=== PATIENT | male | born 1940 | race Caucasian/White ===

== ENCOUNTER 2021-06-06 12:22 | Emergency (ER) | payer MEDICARE, OTHER ==
[~2021-06-06 12:22] MED LIST: ASPIR-LOW81 MG PO; B-12 PO; CALCIUM PO; CLONIDINE HCL0.2 MG PO; METOPROLOL TART50 MG PO; MULTIVITAMIN PO; NORVASC5 MG PO; PANTOPRAZOLE SO40 MG PO; PRAVASTATIN SOD80 MG PO; SINGULAR PO; ULTRAM 50MG50 MG PO
[2021-06-06 13:24] LABS: ALBUMIN 3.7 g/dL (3.5-5.0); ANION GAP 12.2 mmol/L (8-16); CALCIUM 9.3 mg/dL (8.4-10.2); CREATININE, SERUM 0.77 mg/dL (0.72-1.25); POTASSIUM 3.2 mmol/L (3.5-5.1)
[2021-06-06 13:28] LABS: BASOPHILS % 0.4 % (0.0-1.0); EOSINOPHILS % 0.4 % (0.0-6.0); HEMOGLOBIN 13.8 g/dL (14.0-18.0); LYMPHOCYTES # (AUTO) 0.2 (1.0-3.2); LYMPHOCYTES % 4.3 % (18.0-39.1); MEAN CORPUSCULAR HGB CONC 34.5 g/dL (31-35); MEAN CORPUSCULAR VOLUME 98.5 fL (81-99); MONOCYTES # (AUTO) 0.3 (0.2-0.8); MONOCYTES % 5.5 % (4.4-11.3); NEUTROPHILS # (AUTO) 4.7 (2.1-6.9); NEUTROPHILS % 88.8 % (38.7-80.0); PLATELET COUNT 142 x10e3/uL (140-360); RED BLOOD COUNT 4.06 x10e6/uL (4.3-5.7); RED CELL DISTRIBUTION WIDTH 12.1 % (11.7-14.4)
[2021-06-06 13:52] LABS: CLARITY,URINE CLEAR (CLEAR); COLOR,URINE YELLOW (YELLOW)
[2021-06-06 13:53] LABS: BACTERIA,URINE RARE /HPF; KETONES,URINE NEGATIVE (NEGATIVE); LEUKOCYTE ESTERASE ,URINE NEGATIVE (NEGATIVE); NITRITE,URINE NEGATIVE (NEGATIVE); PROTEIN,URINE DIPSTICK 1+ (NEGATIVE); RBC,URINE 0-5 /HPF (0-5); URINE UROBILINOGEN 0.2 mg/dL (0.2 - 1)
[2021-06-06 14:54] VITALS: BP 140/83
[2021-06-06] MEDS ORDERED: CEFUROXIME250 MG PO (15:21)
== END 2021-06-06 15:34 | disposition home or self-care (01) ==
LOC: ER 12:34
DX: R53.81 Other malaise (principal); R73.9 Hyperglycemia, unspecified; R53.83 Other fatigue; I10 Essential (primary) hypertension; E78.5 Hyperlipidemia, unspecified; Z20.822 Contact with and (suspected) exposure to COVID-19
CPT/HCPCS: 36415; 80053; 81001; 85025; 87086; 99283; U0002

== ENCOUNTER 2021-07-13 10:23 | Inpatient (IN) | payer MEDICARE ==
[2021-07-10 13:57] LABS: BASOPHILS % 0.4 % (0.0-1.0); EOSINOPHILS # (AUTO) 0.3 (0.0-0.4); EOSINOPHILS % 5.5 % (0.0-6.0); HEMATOCRIT 38.2 % (38.2-49.6); HEMOGLOBIN 12.7 g/dL (14.0-18.0); LYMPHOCYTES % 19.7 % (18.0-39.1); MEAN CORPUSCULAR HEMOGLOBIN 33.5 pg (28-32); MEAN CORPUSCULAR HGB CONC 33.2 g/dL (31-35); MEAN CORPUSCULAR VOLUME 100.8 fL (81-99); MONOCYTES # (AUTO) 0.7 (0.2-0.8); MONOCYTES % 13.4 % (4.4-11.3); NEUTROPHILS % 60.8 % (38.7-80.0); PLATELET COUNT 168 x10e3/uL (140-360); RED BLOOD COUNT 3.79 x10e6/uL (4.3-5.7); RED CELL DISTRIBUTION WIDTH 12.4 % (11.7-14.4)
[2021-07-10 14:24] LABS: ANION GAP 14.3 mmol/L (8-16); CALCIUM 9.5 mg/dL (8.4-10.2); CREATININE, SERUM 0.79 mg/dL (0.72-1.25); POTASSIUM 4.3 mmol/L (3.5-5.1)
[~2021-07-13] VITALS: Ht 170.2 cm; Wt 97.5 kg
[~2021-07-13 10:23] MED LIST changes: +CEFUROXIME250 MG PO
[2021-07-13] MEDS ORDERED: SODIUM CHLORIDE 0.9% 50ML 50 ML ONE (11:13)
[2021-07-13] MEDS ORDERED: PIPERACILLIN/TAZOBACTAM 3.375 GM VIAL ONE (11:14)
[2021-07-13] MEDS ORDERED: SODIUM CHLORIDE 0.9% 1000ML 1,000 ML ONE (11:14)
[2021-07-13] MEDS ORDERED: GENTAMICIN 80MG/NS 100 ML 200 ML IV ONE (12:00)
[2021-07-13] MEDS ORDERED: B&O 60MG R/S 60 MG SUPP PR ONE (12:51)
[2021-07-13] MEDS ORDERED: IOPAMIDOL 300MG/ML 50ML INFUS..BTL IV ONE (12:51)
[2021-07-13] MEDS ORDERED: ONDANSETRON HCL INJ 2MG/ML 2ML 2 MG/ML VIAL IV PRN (13:00)
[2021-07-13] MEDS ORDERED: B&O 60MG R/S 60 MG SUPP PR PRN (13:00)
[2021-07-13] MEDS ORDERED: DIPHENHYDRAMINE HCL 25 MG CAP PO PRN (13:00)
[2021-07-13] MEDS ORDERED: PHENAZOPYRIDINE HCL 100 MG TAB PO PRN (13:00)
[2021-07-13] MEDS ORDERED: LIDOCAINE HCL 2% LOCAL INJ 5 ML SDV VIAL INJ ONE (13:39)
[2021-07-13] MEDS ORDERED: POVIDONE IODINE 0.05% 0.05 % ML PO ONE (13:39)
[2021-07-13] MEDS ORDERED: SEVOFLURANE INHAL SOLN 250 ML PEN BTL ONE (13:39)
[2021-07-13] MEDS ORDERED: PROPOFOL IV EMULSION 10 MG/ML 20 ML VIAL ONE (13:39)
[2021-07-13] MEDS ORDERED: ONDANSETRON HCL INJ 2MG/ML 2ML 2 MG/ML VIAL ONE (13:39)
[2021-07-13] MEDS ORDERED: FENTANYL CITRATE/PF 100MCG/2 ML INJ ONE (13:59)
[2021-07-13 15:28] VITALS: BP 181/90
[2021-07-13 15:58] VITALS: BP 181/90
[2021-07-13] MEDS: D5.45%NS/KCL 20MEQ 1,000 ML IV SCH ×2 (16:53→21:00)
[2021-07-13] MEDS: DOCUSATE SODIUM 100 MG CAP PO SCH (16:54)
[2021-07-13] MEDS: ACETAMINOPHEN/CODEINE 300MG - 30MG TAB PO PRN (17:25)
[2021-07-13] MEDS ORDERED: ACETAMINOPHEN 1000 MG/100 ML IV PRN (18:00)
[2021-07-13 18:47] LABS: BASOPHILS % 0.2 % (0.0-1.0); EOSINOPHILS # (AUTO) 0.1 (0.0-0.4); EOSINOPHILS % 1.4 % (0.0-6.0); HEMATOCRIT 39.2 % (38.2-49.6); HEMOGLOBIN 12.9 g/dL (14.0-18.0); LYMPHOCYTES # (AUTO) 0.7 (1.0-3.2); LYMPHOCYTES % 8.4 % (18.0-39.1); MEAN CORPUSCULAR HEMOGLOBIN 33.7 pg (28-32); MEAN CORPUSCULAR HGB CONC 32.9 g/dL (31-35); MEAN CORPUSCULAR VOLUME 102.3 fL (81-99); MONOCYTES # (AUTO) 0.4 (0.2-0.8); MONOCYTES % 4.9 % (4.4-11.3); NEUTROPHILS # (AUTO) 7.1 (2.1-6.9); NEUTROPHILS % 84.9 % (38.7-80.0); PLATELET COUNT 159 x10e3/uL (140-360); RED BLOOD COUNT 3.83 x10e6/uL (4.3-5.7); RED CELL DISTRIBUTION WIDTH 12.4 % (11.7-14.4)
[2021-07-13 19:04] LABS: ANION GAP 14.4 mmol/L (8-16); CALCIUM 8.7 mg/dL (8.4-10.2); CREATININE, SERUM 0.69 mg/dL (0.72-1.25); POTASSIUM 4.4 mmol/L (3.5-5.1)
[2021-07-13 20:00] VITALS: BP 139/60
[2021-07-13] MEDS: PIPERACILLIN/TAZOBACTAM 3.375 GM in SODIUM CHLORIDE 0.9% 50ML 50 ML IV SCH (20:35)
[2021-07-13 21:51] VITALS: BP 139/60
[2021-07-14] VITALS (8 sets, daily range): BP systolic 132–169; BP diastolic 62–86
[2021-07-14] MEDS: ACETAMINOPHEN/CODEINE 300MG - 30MG TAB PO PRN ×2 (00:04→19:36)
[2021-07-14] MEDS: D5.45%NS/KCL 20MEQ 1,000 ML IV SCH ×2 (00:37→09:36)
[2021-07-14] MEDS: PIPERACILLIN/TAZOBACTAM 3.375 GM in SODIUM CHLORIDE 0.9% 50ML 50 ML IV SCH ×3 (03:43→20:32)
[2021-07-14 07:13] LABS: BASOPHILS % 0.5 % (0.0-1.0); EOSINOPHILS # (AUTO) 0.1 (0.0-0.4); EOSINOPHILS % 2.2 % (0.0-6.0); HEMATOCRIT 37.3 % (38.2-49.6); HEMOGLOBIN 12.4 g/dL (14.0-18.0); LYMPHOCYTES # (AUTO) 0.5 (1.0-3.2); LYMPHOCYTES % 8.5 % (18.0-39.1); MEAN CORPUSCULAR HEMOGLOBIN 33.8 pg (28-32); MEAN CORPUSCULAR HGB CONC 33.2 g/dL (31-35); MEAN CORPUSCULAR VOLUME 101.6 fL (81-99); MONOCYTES # (AUTO) 0.5 (0.2-0.8); MONOCYTES % 7.9 % (4.4-11.3); NEUTROPHILS # (AUTO) 5.1 (2.1-6.9); NEUTROPHILS % 80.4 % (38.7-80.0); PLATELET COUNT 107 x10e3/uL (140-360); RED BLOOD COUNT 3.67 x10e6/uL (4.3-5.7); RED CELL DISTRIBUTION WIDTH 12.8 % (11.7-14.4)
[2021-07-14 07:17] LABS: ANION GAP 13.1 mmol/L (8-16); CALCIUM 8.5 mg/dL (8.4-10.2); CREATININE, SERUM 0.69 mg/dL (0.72-1.25); POTASSIUM 4.1 mmol/L (3.5-5.1)
[2021-07-14] MEDS: DOCUSATE SODIUM 100 MG CAP PO SCH ×2 (08:14→16:42)
[2021-07-14] MEDS ORDERED: MAGNESIUM HYDROXIDE 30 ML UDC PO PRN (10:15)
[2021-07-14] MEDS ORDERED: MAGNESIUM SULFATE 2GM/50ML IV ONE (10:15)
[2021-07-14] MEDS ORDERED: BISACODYL 10 MG SUPP PR PRN (10:15)
[2021-07-14] MEDS ORDERED: ACETAMINOPHEN 325 MG TAB PO PRN (10:15)
[2021-07-14] MEDS ORDERED: ONDANSETRON HCL INJ 2MG/ML 2ML 2 MG/ML VIAL IV PRN (10:15)
[2021-07-14] MEDS ORDERED: MAGNESIUM SULFATE 2GM/50ML 50 ML IV ONE (10:30)
[2021-07-14] MEDS: MAGNESIUM OXIDE 400 MG TAB PO SCH ×2 (10:44→16:42)
[2021-07-14] MEDS: METOPROLOL TARTRATE 50 MG TAB PO SCH ×2 (10:44→16:42)
[2021-07-14] MEDS: AMLODIPINE BESYLATE 5 MG TAB PO SCH (10:45)
[2021-07-14] MEDS: SENNA-S TABLET PO SCH ×2 (10:45→16:42)
[2021-07-14] MEDS: FLUTICASONE PROPIONATE NASAL SPRAY NS SCH (13:21)
[2021-07-14] MEDS: MONTELUKAST SODIUM 10 MG TAB PO SCH (20:32)
[2021-07-14] MEDS: SIMVASTATIN 40 MG TAB PO SCH (20:32)
[2021-07-14] MEDS ORDERED: NON-FORMULARY MEDICATION ([Singular] 10 MG) PO SCH (21:00)
[2021-07-15] VITALS (11 sets, daily range): BP systolic 140–186; BP diastolic 66–98
[2021-07-15] MEDS: D5.45%NS/KCL 20MEQ 1,000 ML IV SCH (02:11)
[2021-07-15] MEDS: PIPERACILLIN/TAZOBACTAM 3.375 GM in SODIUM CHLORIDE 0.9% 50ML 50 ML IV SCH ×3 (03:13→21:00)
[2021-07-15 06:40] LABS: BASOPHILS % 0.3 % (0.0-1.0); EOSINOPHILS # (AUTO) 0.3 (0.0-0.4); EOSINOPHILS % 4.9 % (0.0-6.0); HEMATOCRIT 36.2 % (38.2-49.6); HEMOGLOBIN 12.4 g/dL (14.0-18.0); LYMPHOCYTES # (AUTO) 0.7 (1.0-3.2); LYMPHOCYTES % 9.9 % (18.0-39.1); MEAN CORPUSCULAR HEMOGLOBIN 33.8 pg (28-32); MEAN CORPUSCULAR HGB CONC 34.3 g/dL (31-35); MEAN CORPUSCULAR VOLUME 98.6 fL (81-99); MONOCYTES # (AUTO) 0.8 (0.2-0.8); MONOCYTES % 11.1 % (4.4-11.3); NEUTROPHILS % 73.2 % (38.7-80.0); PLATELET COUNT 151 x10e3/uL (140-360); RED BLOOD COUNT 3.67 x10e6/uL (4.3-5.7); RED CELL DISTRIBUTION WIDTH 12.1 % (11.7-14.4)
[2021-07-15 07:05] LABS: CALCIUM 9.7 mg/dL (8.4-10.2); CREATININE, SERUM 0.67 mg/dL (0.72-1.25)
[2021-07-15] MEDS: AMLODIPINE BESYLATE 5 MG TAB PO SCH (08:39)
[2021-07-15] MEDS: MAGNESIUM OXIDE 400 MG TAB PO SCH ×2 (08:39→15:46)
[2021-07-15] MEDS: SENNA-S TABLET PO SCH ×2 (08:39→15:46)
[2021-07-15] MEDS: METOPROLOL TARTRATE 50 MG TAB PO SCH ×2 (08:39→15:46)
[2021-07-15] MEDS: DOCUSATE SODIUM 100 MG CAP PO SCH ×2 (08:39→15:46)
[2021-07-15] MEDS: FLUTICASONE PROPIONATE NASAL SPRAY NS SCH (08:40)
[2021-07-15] MEDS: PANTOPRAZOLE SOD 40 MG TABEC PO SCH (08:40)
[2021-07-15] MEDS: ACETAMINOPHEN/CODEINE 300MG - 30MG TAB PO PRN ×2 (14:43→22:13)
[2021-07-15] MEDS: MONTELUKAST SODIUM 10 MG TAB PO SCH (21:18)
[2021-07-15] MEDS: SIMVASTATIN 40 MG TAB PO SCH (21:18)
[2021-07-16] VITALS (9 sets, daily range): BP systolic 119–172; BP diastolic 55–86
[2021-07-16] MEDS: PIPERACILLIN/TAZOBACTAM 3.375 GM in SODIUM CHLORIDE 0.9% 50ML 50 ML IV SCH ×3 (03:42→20:36)
[2021-07-16 05:26] LABS: BASOPHILS % 0.2 % (0.0-1.0); EOSINOPHILS # (AUTO) 0.4 (0.0-0.4); EOSINOPHILS % 7.3 % (0.0-6.0); HEMATOCRIT 38.5 % (38.2-49.6); HEMOGLOBIN 13.2 g/dL (14.0-18.0); LYMPHOCYTES # (AUTO) 0.9 (1.0-3.2); LYMPHOCYTES % 14.5 % (18.0-39.1); MEAN CORPUSCULAR HEMOGLOBIN 33.8 pg (28-32); MEAN CORPUSCULAR HGB CONC 34.3 g/dL (31-35); MEAN CORPUSCULAR VOLUME 98.5 fL (81-99); MONOCYTES # (AUTO) 0.8 (0.2-0.8); MONOCYTES % 13.7 % (4.4-11.3); NEUTROPHILS # (AUTO) 3.8 (2.1-6.9); NEUTROPHILS % 63.8 % (38.7-80.0); PLATELET COUNT 161 x10e3/uL (140-360); RED BLOOD COUNT 3.91 x10e6/uL (4.3-5.7); RED CELL DISTRIBUTION WIDTH 12.1 % (11.7-14.4)
[2021-07-16 05:52] LABS: ANION GAP 13.7 mmol/L (8-16); CALCIUM 9.6 mg/dL (8.4-10.2); CREATININE, SERUM 0.68 mg/dL (0.72-1.25); POTASSIUM 3.7 mmol/L (3.5-5.1)
[2021-07-16 05:53] LABS: MAGNESIUM 1.6 MG/DL (1.3-2.1); PHOSPHORUS 3.7 MG/DL (2.3-4.7)
[2021-07-16] MEDS: ACETAMINOPHEN/CODEINE 300MG - 30MG TAB PO PRN ×2 (06:00→22:00)
[2021-07-16] MEDS: HYDRALAZINE HCL 25 MG TAB PO PRN ×2 (06:10→22:00)
[2021-07-16] MEDS: AMLODIPINE BESYLATE 5 MG TAB PO SCH (09:00)
[2021-07-16] MEDS: PANTOPRAZOLE SOD 40 MG TABEC PO SCH (09:00)
[2021-07-16] MEDS: DOCUSATE SODIUM 100 MG CAP PO SCH ×2 (09:00→17:00)
[2021-07-16] MEDS: MAGNESIUM OXIDE 400 MG TAB PO SCH ×2 (09:00→17:00)
[2021-07-16] MEDS: FLUTICASONE PROPIONATE NASAL SPRAY NS SCH (09:00)
[2021-07-16] MEDS: METOPROLOL TARTRATE 50 MG TAB PO SCH ×2 (09:00→17:00)
[2021-07-16] MEDS: SENNA-S TABLET PO SCH ×2 (09:00→17:00)
[2021-07-16] MEDS ORDERED: MAGNESIUM SULFATE 2GM/50ML 50 ML IV ONE (09:30)
[2021-07-16] MEDS ORDERED: SODIUM CHLORIDE 0.9% 250ML 250 ML ONE (13:14)
[2021-07-16] MEDS ORDERED: ONDANSETRON HCL 4 MG ORAL DISINTEGRATING TAB PO PRN (13:45)
[2021-07-16] MEDS: SIMVASTATIN 40 MG TAB PO SCH (20:36)
[2021-07-16] MEDS: MONTELUKAST SODIUM 10 MG TAB PO SCH (20:36)
[2021-07-17] VITALS (8 sets, daily range): BP systolic 124–182; BP diastolic 70–90
[2021-07-17] MEDS: PIPERACILLIN/TAZOBACTAM 3.375 GM in SODIUM CHLORIDE 0.9% 50ML 50 ML IV SCH ×3 (04:26→20:49)
[2021-07-17 06:06] LABS: BASOPHILS % 0.5 % (0.0-1.0); EOSINOPHILS # (AUTO) 0.5 (0.0-0.4); EOSINOPHILS % 8.2 % (0.0-6.0); HEMATOCRIT 38.9 % (38.2-49.6); HEMOGLOBIN 13.1 g/dL (14.0-18.0); LYMPHOCYTES % 14.4 % (18.0-39.1); MEAN CORPUSCULAR HEMOGLOBIN 33.7 pg (28-32); MEAN CORPUSCULAR HGB CONC 33.7 g/dL (31-35); MONOCYTES # (AUTO) 0.8 (0.2-0.8); MONOCYTES % 11.3 % (4.4-11.3); NEUTROPHILS # (AUTO) 4.3 (2.1-6.9); NEUTROPHILS % 65.1 % (38.7-80.0); PLATELET COUNT 189 x10e3/uL (140-360); RED BLOOD COUNT 3.89 x10e6/uL (4.3-5.7)
[2021-07-17 06:11] LABS: ANION GAP 14.5 mmol/L (8-16); CALCIUM 9.7 mg/dL (8.4-10.2); CREATININE, SERUM 0.76 mg/dL (0.72-1.25); POTASSIUM 4.5 mmol/L (3.5-5.1)
[2021-07-17] MEDS: DOCUSATE SODIUM 100 MG CAP PO SCH ×2 (08:43→16:41)
[2021-07-17] MEDS: METOPROLOL TARTRATE 50 MG TAB PO SCH ×2 (08:43→16:42)
[2021-07-17] MEDS: MAGNESIUM OXIDE 400 MG TAB PO SCH ×2 (08:43→16:42)
[2021-07-17] MEDS: FLUTICASONE PROPIONATE NASAL SPRAY NS SCH (08:43)
[2021-07-17] MEDS: PANTOPRAZOLE SOD 40 MG TABEC PO SCH (08:44)
[2021-07-17] MEDS: AMLODIPINE BESYLATE 5 MG TAB PO SCH (08:44)
[2021-07-17] MEDS: SENNA-S TABLET PO SCH ×2 (08:44→16:42)
[2021-07-17] MEDS: ACETAMINOPHEN/CODEINE 300MG - 30MG TAB PO PRN ×2 (09:05→22:30)
[2021-07-17] MEDS: SIMVASTATIN 40 MG TAB PO SCH (20:49)
[2021-07-17] MEDS: MONTELUKAST SODIUM 10 MG TAB PO SCH (20:49)
[2021-07-18] VITALS: BP 158/73
[2021-07-18 04:00] VITALS: BP 142/79
[2021-07-18] MEDS: PIPERACILLIN/TAZOBACTAM 3.375 GM in SODIUM CHLORIDE 0.9% 50ML 50 ML IV SCH ×2 (05:00→12:10)
[2021-07-18 08:09] VITALS: BP 176/90
[2021-07-18] MEDS: FLUTICASONE PROPIONATE NASAL SPRAY NS SCH (08:29)
[2021-07-18] MEDS: DOCUSATE SODIUM 100 MG CAP PO SCH (08:29)
[2021-07-18] MEDS: SENNA-S TABLET PO SCH (08:29)
[2021-07-18] MEDS: PANTOPRAZOLE SOD 40 MG TABEC PO SCH (08:31)
[2021-07-18] MEDS: MAGNESIUM OXIDE 400 MG TAB PO SCH (08:31)
[2021-07-18] MEDS: METOPROLOL TARTRATE 50 MG TAB PO SCH (08:31)
[2021-07-18] MEDS ORDERED: AMLODIPINE BESYLATE 10 MG TAB PO SCH (09:00)
[2021-07-18] MEDS ORDERED: AMLODIPINE BESYLATE 5 MG TAB PO ONE (09:15)
[2021-07-18 09:25] VITALS: BP 176/90
[2021-07-18] MEDS: ACETAMINOPHEN/CODEINE 300MG - 30MG TAB PO PRN (09:31)
[2021-07-18 12:03] VITALS: BP 133/71
[2021-07-18] MEDS ORDERED: LEVOFLOXACIN250 MG PO (14:03)
[2021-07-19] MEDS ORDERED: AMLODIPINE BESYLATE 10 MG TAB PO SCH (09:00)
== END 2021-07-18 15:28 | disposition home or self-care (01) | DRG 713 ==
LOC: OR 10:23 → PACU V 14:38 → MED/SURG 15:14
PROVIDERS: ADMIT Internal Medicine; ATTEND Internal Medicine
PROC: 0T7D8ZZ Dilation of Urethra, Via Natural or Artificial Opening Endoscopic (ICD-10-PCS; 2021-07-13)
PROC: BT141ZZ Fluoroscopy of Kidneys, Ureters and Bladder using Low Osmolar Contrast (ICD-10-PCS; 2021-07-13)
PROC: 0V508ZZ Destruction of Prostate, Via Natural or Artificial Opening Endoscopic (ICD-10-PCS; principal; 2021-07-13 12:30)
PROC: 0VB08ZX Excision of Prostate, Via Natural or Artificial Opening Endoscopic, Diagnostic (ICD-10-PCS; 2021-07-13 12:30)
DX: C61 Malignant neoplasm of prostate (principal); N13.8 Other obstructive and reflux uropathy; N40.1 Benign prostatic hyperplasia with lower urinary tract symptoms; R39.14 Feeling of incomplete bladder emptying; N35.912 Unspecified bulbous urethral stricture, male; E66.9 Obesity, unspecified; Z68.33 Body mass index [BMI] 33.0-33.9, adult; R97.20 Elevated prostate specific antigen [PSA]; E87.8 Other disorders of electrolyte and fluid balance, not elsewhere classified; R00.0 Tachycardia, unspecified; I10 Essential (primary) hypertension; Z20.822 Contact with and (suspected) exposure to COVID-19
CPT/HCPCS: 36415; 71046; 74420; 76872; 76998; 80048; 83735; 84100; 85025; 88305; 93005; 94799; C1758; J1580; J2001; J2405; J2543; J3010; J3475; J7030; J7050; U0002